=== PATIENT | female | born 1985 | race Asian ===

== ENCOUNTER 2019-02-03 21:55 | Inpatient (IN) | payer MEDICAID ==
[2019-02-03] MEDS ORDERED: LACTATED RINGER'S 1,000 ML IV (22:23)
[2019-02-03] MEDS ORDERED: MISOPROSTOL 200 MCG TAB PR (22:30)
[2019-02-03] MEDS ORDERED: OXYTOCIN 30 UNITS/LR 500 ML IV (22:30)
[2019-02-03] MEDS ORDERED: LIDOCAINE 1% (MPF) 30 ML INJ INJ (22:30)
[2019-02-03] MEDS ORDERED: BUTORPHANOL 2 MG INJ IV ×2 (22:30)
[2019-02-03] MEDS ORDERED: CARBOPROST 250 MCG INJ IM (22:30)
[2019-02-04 00:36] LABS: ADD MAN DIFF? NO; BASOPHILS % 0.3 % (0.0-2.0); EOSINOPHILS # 0.2 10^3/ul (0.0-0.5); EOSINOPHILS % 1.6 % (0.0-7.0); HEMATOCRIT 40.2 % (37.0-47.0); HEMOGLOBIN 13.8 g/dl (12.0-16.0); LYMPHOCYTES # 2.2 10^3/ul (0.8-2.9); LYMPHOCYTES % 22.3 % (15.0-51.0); MEAN CORPUSCULAR HGB CONC 34.3 g/dl (32.0-37.0); MEAN CORPUSCULAR VOLUME 93.3 fl (82.0-101.0); MEAN PLATELET VOLUME 9.3 fl (7.4-10.4); MONOCYTE # 0.7 10^3/ul (0.3-0.9); MONOCYTES % 7.3 % (0.0-11.0); NEUTROPHIL # 6.6 10^3/ul (1.6-7.5); PLATELET COUNT 210 10^3/UL (140-415); RED BLOOD COUNT 4.31 10^6/ul (4.20-5.40); RED CELL DISTRIBUTION WIDTH 11.9 % (11.5-14.5)
[2019-02-04 00:36] LABS: WHITE BLOOD COUNT 9.7 10^3/ul (4.8-10.8)
[2019-02-04 00:55] LABS: PARTIAL THROMBOPLASTIN TIME 24.3 Sec (23.0-35.0); PROTIME 11.2 Sec (11.9-14.9); PT RATIO 0.9
[2019-02-04] MEDS ORDERED: OXYTOCIN 30 UNITS/LR 500 ML IV ×2 (05:00→10:30)
[2019-02-04] MEDS: METHYLERGONOVINE 0.2 MG INJ IM (08:37)
[2019-02-04] MEDS: OXYTOCIN 30 UNITS/LR 500 ML IV ×2 (08:51→09:08)
[2019-02-04] MEDS: IBUPROFEN 600 MG TAB PO ×4 (09:36→23:56)
[2019-02-04] MEDS: LACTATED RINGER'S 1,000 ML IV* (10:13)
[2019-02-04] MEDS: DEXTROSE 5%-LR 1,000 ML IV (10:13)
[2019-02-04] MEDS ORDERED: ONDANSETRON 4 MG INJ IV (10:30)
[2019-02-04] MEDS ORDERED: MAGNESIUM HYDROXIDE 30ML CUP PO (10:30)
[2019-02-04] MEDS ORDERED: SENNA/DOCUSATE NA (8.6MG/50MG) TAB PO (10:30)
[2019-02-04] MEDS ORDERED: ZOLPIDEM 5 MG TAB PO (10:30)
[2019-02-04] MEDS ORDERED: CARBOPROST 250 MCG INJ IM (10:30)
[2019-02-04] MEDS ORDERED: MISOPROSTOL 200 MCG TAB PR (10:30)
[2019-02-04] MEDS ORDERED: DIPHENHYDRAMINE 50 MG INJ IV (10:30)
[2019-02-04] MEDS ORDERED: OXYCODONE/ASPIRIN (4.88/325) TAB PO (10:30)
[2019-02-04] MEDS ORDERED: METHYLERGONOVINE 0.2 MG INJ IM (10:30)
[2019-02-04] MEDS: WITCH HAZEL/GLYCERIN PAD PR (11:30)
[2019-02-04] MEDS: BENZOCAINE 20% 56 ML SPRAY TOP (11:31)
[2019-02-04] MEDS: LANOLIN HPA 1 PKT TOP (11:31)
[2019-02-04] MEDS: DIBUCAINE 1% 30 GM OINT TOP (11:31)
[2019-02-04] MEDS: ACETAMINOPHEN 325 MG TAB PO (14:25)
[2019-02-04 19:31] LABS: RAPID PLASMA REAGIN NONREACTIVE (NR)
[2019-02-05] MEDS: IBUPROFEN 600 MG TAB PO ×3 (05:16→18:01)
[2019-02-05 08:17] LABS: ADD MAN DIFF? NO
[2019-02-05 08:21] LABS: BASOPHILS % 0.2 % (0.0-2.0); EOSINOPHILS # 0.2 10^3/ul (0.0-0.5); EOSINOPHILS % 1.4 % (0.0-7.0); HEMATOCRIT 39.2 % (37.0-47.0); HEMOGLOBIN 13.2 g/dl (12.0-16.0); LYMPHOCYTES # 2.6 10^3/ul (0.8-2.9); LYMPHOCYTES % 20.8 % (15.0-51.0); MEAN CORPUSCULAR HGB CONC 33.7 g/dl (32.0-37.0); MEAN CORPUSCULAR VOLUME 95.1 fl (82.0-101.0); MEAN PLATELET VOLUME 9.2 fl (7.4-10.4); MONOCYTE # 0.8 10^3/ul (0.3-0.9); MONOCYTES % 6.5 % (0.0-11.0); NEUTROPHIL # 8.8 10^3/ul (1.6-7.5); NEUTROPHILS % 70.6 % (39.0-77.0); PLATELET COUNT 195 10^3/UL (140-415); RED BLOOD COUNT 4.12 10^6/ul (4.20-5.40); RED CELL DISTRIBUTION WIDTH 12.1 % (11.5-14.5)
[2019-02-05 08:21] LABS: WHITE BLOOD COUNT 12.5 10^3/ul (4.8-10.8)
[2019-02-06] MEDS: IBUPROFEN 600 MG TAB PO ×3 (00:04→13:35)
[2019-02-06] MEDS: DIPHTH/TET/ACEL PERTUSS (ADULT) 0.5 ML VIAL IM* (09:00)
[2019-02-06] MEDS: MEASLES,MUMPS,RUBELLA VACCINE INJ SC* (09:00)
== END 2019-02-06 17:50 | disposition home or self-care (01) | DRG 807 ==
LOC: OBT 21:55 → PP1 02-04 10:09 → L-D 21:56 → OBT 22:22 → L-D 22:22
PROVIDERS: Obstetrics & Gynecology
PROC: 10E0XZZ Delivery of Products of Conception, External Approach (ICD-10-PCS; principal; 2019-02-04)
PROC: 0W8NXZZ Division of Female Perineum, External Approach (ICD-10-PCS; 2019-02-04)
DX: O69.1XX0 Labor and delivery complicated by cord around neck, with compression, not applicable or unspecified (principal); Z37.0 Single live birth; Z3A.39 39 weeks gestation of pregnancy
CPT/HCPCS: 62322; 76815; 76818; 85025; 85610; 85730; 86592; 86850; 86900; 86901